=== PATIENT | female | born 1985 | race Caucasian/White ===

== ENCOUNTER 2017-02-11 14:02 | Emergency (ER) | payer OTHER, MEDICAID ==
[~2017-02-11] VITALS: Ht 157.5 cm; Wt 72.9 kg
[~2017-02-11 14:02] MED LIST: ATEN25TA PO; BUSP5TAB3 PO; CIPR-280 PO; QUET50TA PO; SERT50TA PO
[2017-02-11 14:05] VITALS: Ht 157.5 cm; Wt 72.9 kg
--- OUTSIDE RECORDS SUMMARY | 2017-02-11 14:06 | XMS REPORT ---
Author Author [facility] - Organization Unknown Address Unknown Phone Unavailable Allergies, Adverse Reactions, Alerts * No Latex Allergy. * No IV Contrast Allergy. * No Known Drug Allergies. * No Known Food Allergies. * No Known Allergies. Problems No relevant problems exist. Procedures No relevant procedures performed. Medication Medication reconciliation has not been performed. Results LAB--CHEMISTRY from 06/12/2013 2:42 PMPregnancy, Urine Positive A (Negative ) LAB--HEMATOLOGY from 06/12/2013 3:58 PMAbsolute Basophils 0.04 THOUS (0.00-0.20 THOUS) Absolute Eosinophils 0.08 THOUS (0.00-0.50 THOUS) Absolute Lymphocytes 1.64 THOUS (0.80-3.30 THOUS) Absolute Monocytes 0.98 THOUS (0.30-1.00 THOUS) Absolute Neutrophils 10.12 THOUS H (1.90-7.00 THOUS) HCT 33.8 % L (37.0-47.0 %) HGB 11.8 g/dl L (12.0-16.0 g/dl) MCH 28.2 pg (27.0-32.0 pg) MCHC 34.9 g/dL (32.0-36.0 g/dL) MCV 80.7 fL L (82.0-99.0 fL) MPV 12.7 fL H (9.4-12.4 fL) Platelet Count 121 K/uL L (150-400 K/uL) RBC 4.19 M/uL (4.00-5.20 M/uL) RDW 14.6 % H (11.5-14.5 %) WBC 12.9 K/uL H (4.8-10.8 K/uL) Basophils 0 % (0-2 %) Eosinophils 1 % (0-4 %) Immature Granulocytes 0.2 % (0.0-1.0 %) Lymphocytes 13 % L (20-46 %) Monocytes 8 % (4-11 %) Nucleated RBC Automated 0.0 /100 WBC (0 /100 WBC) Neutrophils 79 % H (51-75 %) LAB--URINE TESTS from 06/12/2013 2:42 PMAppearance Clear Bilirubin Negative (Negative ) Blood Negative (Negative ) Color Yellow Glucose Negative (Negative ) Ketones, Urine Negative (Negative ) Leukocytes Esterase Pos 2+ A (Negative ) Nitrites Negative (Negative ) pH, Urine 7.0 (5.0-8.0 ) Protein Negative (Negative ) Specific [place] 1.017 (1.003-1.030 ) Collection Type: Clean Catch Urobilinogen Negative mg/dL (-<1.0 mg/dL) Bacteria Occasional A Epithelial Cells 5-10 /HPF Mucus Present WBC 10-20 /HPF A (0-4 /HPF)
--- OUTSIDE RECORDS SUMMARY | 2017-02-11 14:06 | XMS REPORT ---
Author Author Dorita Lucero [facility] eClinicalWorks Address Unknown Phone Unavailable Care Team Providers Care Deployment Specialist Name Role Phone Dorita Lucero CP Unavailable Allergies No Known Allergies Problems Problem Type Condition Code Onset Dates Condition Status Problem Anxiety F41.9 Active Problem Irregular periods N92.6 Active Problem Depression, unspecified depression type F32.9 Active Medications No Known Medications Results No Known Results Summary Purpose eClinicalWorks Submission
--- OUTSIDE RECORDS SUMMARY | 2017-02-11 14:06 | XMS REPORT | Continuity of Care Document ---
Author Author [facility] Organization [facility] Address Unknown Phone Unavailable Care Team Providers Care School Teacher Name Role Phone REJI DORADO DO Primary Care Physician [phone] Insurance Providers Guarantor Ana Maria Jordan Address [address] [place] [address] Payer [facility] Policy Number [id number] Subscriber's Name JúniorAna Maria Relationship 18 Self Chief Complaint and Reason for Visit Chief Complaint Cough,Fever,Flu,URI Reason for Visit Urinary tract infection Viral pharyngitis Problems Past Problems Medical Problem Onset Date Urinary tract infection Unknown Viral pharyngitis Unknown Medications Current Home Medications Medication Dose Units Route Directions Days Qty Instructions Start Date Atenolol 25 Mg Tablet 1 Tab Oral Twice A Day 10/11/16 Buspirone Hcl 5 Mg Tablet 5 10/11/16 Ciprofloxacin Hcl 500 Mg Tablet 500 Mg Oral Twice A Day 5 Days 10 Tablet 10/11/16 Quetiapine Fumarate (Seroquel) 50 Mg Tablet 50 Mg Oral Take Today At 8: 00AM & 12:00PM Take 1 tablet, by mouth, two times a day at 8:00am and 12: 00pm (NOON). 10/11/16 Sertraline Hcl (Zoloft) 50 Mg Tablet 50 Mg Oral Daily 10/11/16 Social History No social history. Hospital Discharge Instructions No hospital discharge instructions. Plan of Care Discharge Date 10/11/16 11:30am Disposition 01 DISCHARGED HOME, SELF-CARE Condition at Discharge Stable Instructions/Education Provided DI for Urinary Tract Infection (UTI) Prescriptions See Medication Section Referrals REJI DORADO DO Address: [address] [address] Functional Status No functional status results. Allergies, Adverse Reactions, Alerts No known allergies. Immunizations Query Response on File Recorded Date/Time DTaP Vaccine History YES 10/11/16 11:00am Influenza Vaccine Hx YES 09/0410/11/16 11:00am Tetanus Diptheria Vaccine History YES 10/11/16 11:00am Vital Signs Acute Vital Signs Vital Response Date/Time Temperature (Fahrenheit) 99.0 deg F (96.8 - 99.1) 10/11/2016 10:47am Temperature (Calculated Celsius) 37.84287 degrees C (36.0 - 37.3) 10/11/2016 10:47am Pulse Rate (adult) 72 bpm (60 - 100) 10/11/2016 10:47am Respiratory Rate 16 breaths/min (10 - 20) 10/11/2016 10:47am O2 Sat by Pulse Oximetry 97 % (90 - 100) 10/11/2016 10:47am Blood Pressure 110/62 mm Hg 10/11/2016 10:47am Height (Inches) 64.00 inches 10/11/2016 10:47am Weight (Kilograms) 76.500 kg 10/11/2016 10:47am Body Mass Index (BMI) 28.0 10/11/2016 10:47am Results Laboratory Results Test Name Result Units Flags Reference Collection Date/Time Result Date/ Time Comments Group A Streptococcus Screen NEGATIVE NEGATIVE 10/11/2016 11:01am 11:55am Urine Collection Type CLEANCATCH-MIDSTREAM 10/11/2016 11:01am 10/11 12:03pm Urine Color BROWN YELLOW 10/11/2016 11:01am 10/11/2016 12:03pm Urine Turbidity CLOUDY CLEAR 10/11/2016 11:01am 10/11/2016 12:03pm Urine Specific [place] 1.020 1.015-1.025 10/11/2016 11:01am 2015 12:03pm Urine pH 6.0 5.0-8.0 10/11/2016 11:01am 10/11/2016 12:03pm Urine Leukocyte Esterase 2+ A NEGATIVE 10/11/2016 11:01am 10/11/2016 12:03pm Urine Nitrite NEGATIVE NEGATIVE 10/11/2016 11:01am 10/11/2016 12: 03pm Urine Protein 1+ A NEGATIVE 10/11/2016 11:01am 10/11/2016 12:03pm Urine Glucose (UA) NEGATIVE NEGATIVE 10/11/2016 11:01am 10/11/2016 12 :03pm Urine Ketones NEGATIVE NEGATIVE 10/11/2016 11:01am 10/11/2016 12: 03pm Urine Urobilinogen 1 EU/DL NORMAL 10/11/2016 11:01am 10/11/2016 12: 03pm Urine Bilirubin 1+ A NEGATIVE 10/11/2016 11:01am 10/11/2016 12:03pm Urine Blood 2+ A NEGATIVE 10/11/2016 11:01am 10/11/2016 12:03pm Procedures No known history of procedures. Encounters Encounter Location Arrival/Admit Date Discharge/Depart Date Attending Provider Departed Emergency Room [facility] 10/11/16 10:37am 10/11/16 11: 30am STEVEN HINES APRN Recent Diagnosis
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
--- OUTSIDE RECORDS SUMMARY | 2017-02-11 14:19 | XMS REPORT ---
Author Author [place], [facility] - Organization Unknown Address Unknown Phone [...] (5.0-8.0 ) Protein Negative (Negative ) Specific [place] 1.017 (1.003-1.030 ) Collection Type: Clean Catch Urobilinogen Negative mg/dL (-<1.0 mg/dL) Bacteria Occasional A Epithelial Cells 5-10 /HPF Mucus Present WBC 10-20 /HPF A (0-4 /HPF)
--- NOTE | 2017-02-11 14:20 | NUR ---
REPORT RECEIVED FROM HUGH GLEASON. CARE ASSUMED.
--- NOTE | 2017-02-11 14:24 | NUR ---
XRY PORTABLE XRY AT BEDSIDE.
[2017-02-11] MEDS ORDERED: TETANUS,DIPHTH,a PERTUS (Tdap) 0.5 ML VIAL IM ONE (14:30)
--- NOTE | 2017-02-11 14:35 | DI ---
Indication: ITS.REASON: LEFT HAND INJURY with thumb pain PROCEDURE: HAND LEFT 3 VIEW: Encounter: Initial Comparison: None Findings: There is no acute fracture, dislocation or malalignment identified. Impression: No acute osseous abnormality. .
--- NOTE | 2017-02-11 14:57 | NUR ---
MED PT GIVEN INSTRUCTION REGARDING NORCO. UNDERSTANDING VERBALIZED.
[2017-02-11] MEDS ORDERED: HYDROCODONE/APAP 5 mg/325 mg TABLET PO ONE (15:00)
[2017-02-11] MEDS ORDERED: HYDR-4246 PO (15:06)
--- NOTE | 2017-02-11 15:06 | ERPDOC ---
Departure Disposition Decision Date: Feb 11, 2017 Disposition Decision Time: 15:05 Disposition: 01 DISCHARGED HOME, SELF-CARE Impression Impression Impression: Primary Impression: Puncture wound Severity: Moderate Condition: Stable Seen By: Mid-level only Referrals: REJI DORADO DO (PCP) Patient Instructions: Puncture Wound (ED) Problems/Meds/Labs Reviewed?: Yes Medications reviewed and manag: Yes Additional Instructions: Wash the area daily with soap and water. Ice and elevate the hand to help with swelling. May take the [place] as needed for pain. You were given a [place] by mouth in ER today. If you have any further issues/concerns then return to ER or follow up with your primary care provider. Follow up care ordered?: Yes Mental Status: Alert, Oriented Scripts Hydrocodone/Acetaminophen ([place] 5-325 Tablet) 5-325 Tablet 1 TAB PO Q6H Y for PAIN, #10 TAB 0 Refills Prov: DEBRA SALGADO HAND MOLDER AND CASTER 02/11/17 HPI General Chief Complaint: Upper Extremity Injury Stated Complaint: DRILLED WHOLE INTO LT HAND Time Seen by Provider: 14:10 Source: patient Exam Limitations: no limitations HPI Hand/Forearm Initial Comments She was at work today and was using a drill to tighten screws into a hinge. The drill slipped and went into her hand on the left side. She has a puncture wound on the left hand soft tissue with pain and swelling. Unsure when her last TDAP was. Occurred At: work Onset: Rapid Duration: 1 hr Severity: moderate Location: left: hand Method of Injury: other (puncture wound on the left hand) Associated Symptoms: pain with extension, pain with flexion, pain with grasp, swelling, DENIES: bruising, numbness, pallor, red streaks, redness, weakness Allergies: Coded Allergies: No Known Allergies (Unverified , 02/11/17) Past History Past Medical History Pt denies signifigant PMH Surgical History Denies Surgeries Family History Family History: Negative Family PMH: FOUND: bipolar, depression, drug abuse, migraines Social History Tobacco Usage: none Alcohol Usage: none Drug Usage: none IV Drug Use: No Review of Systems Musculoskeletal General: pain (left hand), tenderness (left hand around the site of puncture wound), DENIES: joint pain, joint swelling Integumentary Skin: other (Puncture wound on the left hand over the MCP ) Exam General General Nourishment: well nourished, well developed, appears stated age, no acute distress, adult General Body Habitus: well groomed Vital Signs: RN Vital Signs have been reviewed: Yes, Temperature: 98.4, Source : Oral, Heart Rate: 80, Respiratory Rate: 16, BP: 122/67, Pulse Oximetry: 97 Height (Feet): 5 Height (Inches): 2.00 Fastrak Hand/Forearm Hand/Forearm : Upper Extremity: Left Elbow: extension intact, flexion intact, NOT FOUND: deformity, ecchymosis, erythema, swelling, tender Forearm: pronation intact, supination intact, NOT FOUND: deformity, ecchymosis, erythema, laceration, swelling, tender Wrist: ROM intact, NOT FOUND: deformity, ecchymosis, erythema, snuff box tenderness, swelling, tender, thenar eminence tender Hand: swelling (around the site of the puncture), tender (at site of the puncture), NOT FOUND: deformity, ecchymosis, erythema, laceration Fingers: cap refill <2sec ea digit, soft touch intact, NOT FOUND: deformity , ecchymosis, erythema, impaired abduction, impaired adduction, impaired extension, impaired flexion, impaired grasp, laceration, nail avulsion, rotational deformity, subungual hematoma, swelling, tender Radial Pulse: 2+ Neurologic RN Documented GCS Eye Opening: Verbal: Motor: Total: Differential Diagnoses Considering: Abscess, Contusion, Other (puncture wound, bony involvement) Progress Results/Orders Orders Procedure Category Date Status Time Hand Left 3 View RAD 02/11/17 Resulted Tetanus,Diphth,A PHA 02/11/17 Complete Pertus (Tdap) (Adacel) 14:30 Hydrocodone/Acetaminophen PHA 02/11/17 Complete ([place] 5/325) 15:00 Medications Current ED Medications Diphtheria/ Tetanus/Acell Pertussis (Adacel) 0.5 ml O ONCE IM Last administered on 02/11/17 14:32; Start 02/11/17 at 14:30; Stop 02/11/17 at 14:31 ; Status DC Acetaminophen/ Hydrocodone Bitart ([place] 5/325) 1 tab O ONCE PO Last administered on 02/11/17 14:57; Start 02/11/17 at 15:00; Stop 02/11/17 at 15:01 ; Status DC Progress Progress Xray does not show any bony involvement. Will have her wash daily with soap and water. Ice and elevate. [place] and NSAIDS as needed for pain. If any further issues/concerns then return to ER. Xray Xray : Reason for Exam: injury to left hand Xray: Hand L Interpretation: Normal DEBRA SALGADO APRN Feb 11, 2017 15:06
[2017-02-11 15:36] VITALS: BP 99/52; PULSE 65; RESP 16; TEMP 97.7; O2SAT 97
--- NOTE | 2017-02-11 15:36 | NUR ---
DISMISS PT INSTRUCTED TO WASH PUNCTURE WOUND AND APPLY BANDAID THIS RN GAVE TO PT. PT DISMISSED AMBULATORY TO LOBBY WITH MOTHER.
== END 2017-02-11 15:36 | disposition home or self-care (01) ==
LOC: ED 14:02
DX: S61.432A Puncture wound without foreign body of left hand, initial encounter (principal); W29.8XXA Contact with other powered hand tools and household machinery, initial encounter; Y93.89 Activity, other specified; Y92.9 Unspecified place or not applicable; Y99.0 Civilian activity done for income or pay
CPT/HCPCS: 90715

== ENCOUNTER 2017-02-25 11:04 | Emergency (ER) | payer MEDICAID, OTHER ==
[~2017-02-25] VITALS: Ht 157.5 cm; Wt 52.0 kg
[~2017-02-25 11:04] MED LIST changes: -ATEN25TA PO; -CIPR-280 PO; +HYDR-4246 PO; -QUET50TA PO
[2017-02-25 11:08] VITALS: BP 152/89; PULSE 94; RESP 16; TEMP 97.9; O2SAT 99; Ht 157.5 cm; Wt 52.0 kg
--- OUTSIDE RECORDS SUMMARY | 2017-02-25 11:09 | XMS REPORT ---
Author Author [place], [facility] - Organization Unknown Address Unknown Phone Unavailable [...] (5.0-8.0 ) Protein Negative (Negative ) Specific [place] 1.017 (1.003-1.030 ) Collection Type: Clean Catch Urobilinogen Negative mg/dL (-<1.0 mg/dL) Bacteria Occasional A Epithelial Cells 5-10 /HPF Mucus Present WBC 10-20 /HPF A (0-4 /HPF)
--- OUTSIDE RECORDS SUMMARY | 2017-02-25 11:09 | XMS REPORT | Continuity of Care Document ---
Author Author [facility] Organization [facility] Address Unknown Phone Unavailable Support Name Relationship Address Phone ASHLIE TANG DO Caregiver [address] [place] [address] Unavailable RISA HIDALGO Next Of Kin [address] [place] [address] Insurance Providers Guarantor Ana Maria Jordan Address [address] [place] [address] Email DENIED 02-11-17 Payer [facility] Policy Number [id number] Subscriber's Name Ana Maria Jordan Relationship 18 Self Effective Date 17 Expiration Date 17 Payer Workers Compensation Subscriber's Name Ana Maria Jordan Relationship 18 Self Advance Directives Directive Response Recorded Date/Time Advanced Directives Type None 02/11/17 2:05pm Chief Complaint and Reason for Visit Chief Complaint Upper Extremity Injury Reason for Visit Puncture wound Problems Past Problems Medical Problem Onset Date Puncture wound Unknown Urinary tract infection Unknown Viral pharyngitis Unknown Medications Current Home Medications Medication Dose Units Route Directions Days Qty Instructions Start Date Buspirone Hcl 5 Mg Tablet 5 Mg Oral Twice A Day 10/11/16 Hydrocodone/Acetaminophen ([place] 5-325 Tablet) 5-325 Tablet 1 Tab Oral Every 6 Hours as needed for Pain 10 Tablet 02/11/17 Sertraline Hcl (Zoloft) 50 Mg Tablet 50 Mg Oral Daily 10/11/16 Social History Social History Problem Response Recorded Date/Time Onset Date Status Chewing Tobacco Status No 02/11/2017 2:33pm Not Applicable Not Applicable Hx Substance Use No 02/11/2017 2:33pm Not Applicable Not Applicable Hx Alcohol Use No 02/11/2017 2:33pm Not Applicable Not Applicable Tobacco Usage none 02/11/2017 3:23pm Not Applicable Not Applicable Query Response Start Date Stop Date Smoking Status Current every day smoker Hospital Discharge Instructions No hospital discharge instructions. Plan of Care Discharge Date 02/11/17 3:36pm Disposition 01 DISCHARGED HOME, SELF-CARE Condition at Discharge Stable Instructions/Education Provided Puncture Wound (ED) Prescriptions See Medication Section Referrals DORADO,REJI M DO Address: [address] [place] [id number] Additional Instructions/Education Wash the area daily with soap and water. Ice and elevate the hand to help with swelling. May take the Sean[place] as needed for pain. You were given a Sean[place] by mouth in ER today. If you have any further issues/concerns then return to ER or follow up with your primary care provider. Care Plan and Goals Physician Care Plan Problem:Puncture Wound Goal: Follow up with primary care provider Instructions: Take medications and follow care plan as discussed/written Functional Status No functional status results. Allergies, Adverse Reactions, Alerts No known allergies. Immunizations Immunization Event Date Type Not Given Reason Dose Number Lot Number Flight Technician VIS Given Tdap 02/11/17 Administered 1 [id number] [employer] 12/13/14 Query Response on File Recorded Date/Time DTaP Vaccine History YES 02/11/17 2:33pm Influenza Vaccine Hx YES 09/0402/11/17 2:33pm Tetanus Diptheria Vaccine History YES 02/11/17 2:33pm Tdap Vaccine Hx 2006 02/11/17 2:32pm Vital Signs Acute Vital Signs Vital Response Date/Time Temperature (Fahrenheit) 97.7 deg F (96.8 - 99.1) 02/11/2017 3:36pm Temperature (Calculated Celsius) 36.84078 degrees C (36.0 - 37.3) 02/11/2017 3:36pm Pulse Rate (adult) 65 bpm (60 - 100) 02/11/2017 3:36pm Respiratory Rate 16 breaths/min (10 - 20) 02/11/2017 3:36pm O2 Sat by Pulse Oximetry 97 % (90 - 100) 02/11/2017 3:36pm Blood Pressure 99/52 mm Hg 02/11/2017 3:36pm Height (Feet) 5 feet 02/11/2017 2:05pm Height (Inches) 2.00 inches 02/11/2017 2:05pm Weight (Kilograms) 72.900 kg 02/11/2017 2:05pm Body Mass Index (BMI) 29.0 02/11/2017 2:05pm Results Name: ANA MARIA JORDAN Unit #: [id number] : 1985 Sex: F Admit Date: Loc / Svc: ED Discharge Date: DIAGNOSTIC IMAGING REPORT Report #: [id number] [facility] CAM Bceker Indication: ITS.REASON: LEFT HAND INJURY with thumb pain PROCEDURE: HAND LEFT 3 VIEW: Encounter: Initial Comparison: None Findings: There is no acute fracture, dislocation or malalignment identified. Impression: No acute osseous abnormality. . Procedures No known history of procedures. Encounters Encounter Location Arrival/Admit Date Discharge/Depart Date Attending Provider Departed Emergency Room [facility] 02/11/17 2:02pm 02/11/17 3: 36pm ASHLIE TANG DO Recent Diagnosis
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
--- OUTSIDE RECORDS SUMMARY | 2017-02-25 11:37 | XMS REPORT ---
Author Author [place] - Organization Unknown Address Unknown Phone [...] (5.0-8.0 ) Protein Negative (Negative ) Specific [place] 1.017 (1.003-1.030 ) Collection Type: Clean Catch Urobilinogen Negative mg/dL (-<1.0 mg/dL) Bacteria Occasional A Epithelial Cells 5-10 /HPF Mucus Present WBC 10-20 /HPF A (0-4 /HPF)
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
== END 2017-02-25 11:21 | disposition left against medical advice (07) ==
LOC: ED 11:04
DX: Z53.21 Procedure and treatment not carried out due to patient leaving prior to being seen by health care provider (principal)